=== PATIENT | male | born 1955 | race Caucasian/White ===

== ENCOUNTER 2017-07-07 13:58 | Emergency (ER) | payer OTHER, MEDICAID ==
[2017-07-07] MEDS: DOXYCYCLINE HYCLATE 100 MG TAB PO (15:45)
== END 2017-07-07 16:04 | disposition home or self-care (01) ==
LOC: M ED 13:58
DX: S20.362A Insect bite (nonvenomous) of left front wall of thorax, initial encounter (principal); W57.XXXA Bitten or stung by nonvenomous insect and other nonvenomous arthropods, initial encounter; Y92.89 Other specified places as the place of occurrence of the external cause
CPT/HCPCS: 99283